=== PATIENT | female | born 1970 | race Caucasian/White ===

== ENCOUNTER → 2019-03-10 12:01 | Outpatient (CLI) | payer OTHER, SELFPAY | PROVIDERS: PCP Physician Assistant Medical; Visit Provider Obstetrics & Gynecology | DX: R30.0 Dysuria (principal) | CPT/HCPCS: 87077; 87086; 87186 ==

== ENCOUNTER 2019-05-01 07:04 | Day surgery (SDC) | payer OTHER, SELFPAY ==
[2019-04-28 09:17] VITALS: BMI 29.7
--- NOTE | 2019-05-01 07:53 | PM.PREOP ---
Pre-operative Note Interval Note History & Physical reviewed/Exam performed by Physician: Yes Changes to H&P: No
[2019-05-01 07:55] VITALS: BMI 28.8
[2019-05-01 08:01] VITALS: BP 130/89; PULSE 58; RESP 15; TEMP 36.6; O2SAT 99
[2019-05-01] MEDS: LACTATED RINGERS 1,000 ML 42 ML IV (08:25)
[2019-05-01 09:55] VITALS: BP 112/76; PULSE 76; RESP 11; TEMP 36.9; O2SAT 98
[2019-05-01 10:00] VITALS: BP 120/81; PULSE 77; RESP 19; O2SAT 99
[2019-05-01 10:05] VITALS: BP 120/85; PULSE 67; RESP 17; O2SAT 100
--- NOTE | 2019-05-01 10:07 | P.OP_ITS ---
Operative Date/Time/Diagnoses Date of procedure: 05/01/19 Time of procedure: 08:45 Pre-op diagnosis: abnormal uterine bleeding, LSIL Post-op diagnosis: same Procedure & Clinicians Procedure: Novasure endometrial ablation, cervical cryotherapy Same procedure as scheduled: Yes Indications: Abnormal uterine bleeding, LSIL on colposcopy Surgeon: Myriam Yoo Marketing Sales Representative: Justina Mejia Anesthesia Type: MAC +/- Operative Notes Specimen(s): none sent Estimated Blood Loss (mL): 0 Procedure in detail: After proper consents were obtained, the patient was taken to the operating room. IV anesthesia was obtained without issue. She was placed in the dorsal lithotomy position and prepped and draped in the normal sterile fashion. After time-out, a speculum was placed in the vagina, and the anterior lip of the cervix grasped with a single-tooth tenaculum. The cervix was easily dilated to 7 mm with Hegar dilators. The uterus was sounded, and fou nd to have an endometrial cavity length of 4.5 cm and cervical length of 3 cm. The NovaSure device was easily introduced into the uterus, and deployed revealing a width of 2.5 cm. The cavity assessment was completed and successful, and the NovaSure process was commenced. The time was 95 seconds, and the total power was 62 w. Once the NovaSure process was complete, the device was retracted and removed from the uterus, with minimal ongoing bleeding or discharge. This point, the tenaculum was removed from the cervix, and attention was turned toward cryotherapy device. Cryotherapy device tip was gently dipped and lubricant, and applied to the cervix, where 3 minutes of freezing begun. Once this 3 minutes was over, the device was removed and the cervix was allowed to thaw. Once the cervix had regained its usual color and appearance, 2nd freeze of 3 minutes was performed. The cervix was again allowed to thaw, and after a final check revealed normal appearance and hemostasis, the speculum was removed from the vagina. The patient tolerated the procedure well. A straight catheterization had been performed prior to the procedure, and negative test had been obtained. Complications: none Post-operative Condition: stable Disposition: PACU Plan for aftercare: Nothing in the vagina for 2 weeks. Postop after 2 weeks. Patient to return with any increasing bleeding, discharge, fevers, chills, nausea, changes in bowel or bladder habits, or any other concerns or complaints.
[2019-05-01 10:09] VITALS: BP 134/83; PULSE 67; RESP 13; O2SAT 100
[2019-05-01] MEDS: OXYCODONE/ACETAMINOPHEN 5/325 TABLET 1 TAB PO (10:12)
--- NOTE | 2019-05-01 10:12 | SUR.PHASEI ---
discussed pain med, pt declined IV rx, felt PO was adequate. Applesauce given first
--- NOTE | 2019-05-01 10:17 | SUR.PHASEI ---
Stable, pleasant, pain 5/10, tolerating PO well. A&O.
[2019-05-01 10:20] VITALS: BP 129/83; PULSE 56; RESP 14; TEMP 36.3; O2SAT 100
== END 2019-05-01 11:03 | disposition home or self-care (01) ==
PROVIDERS: Family Provider Nurse Practitioner; PCP Nurse Practitioner; Visit Provider Obstetrics & Gynecology
PROC: 0U5B8ZZ Destruction of Endometrium, Via Natural or Artificial Opening Endoscopic (ICD-10-PCS; CPT 58563; principal; 2019-05-01 08:45)
DX: N93.9 Abnormal uterine and vaginal bleeding, unspecified (principal); N92.4 Excessive bleeding in the premenopausal period; Z98.890 Other specified postprocedural states; F17.210 Nicotine dependence, cigarettes, uncomplicated; E03.9 Hypothyroidism, unspecified; I10 Essential (primary) hypertension; F32.9 Major depressive disorder, single episode, unspecified
CPT/HCPCS: 58353; 57511; J1100; J1885; J2405; J2704; J3010

== ENCOUNTER 2019-05-19 06:05 | Emergency (ER) | payer OTHER, SELFPAY ==
[2019-05-19 06:14] VITALS: BP 122/71; PULSE 87; RESP 16; TEMP 36.8; O2SAT 99; BMI 28.3
--- NOTE | 2019-05-19 06:41 | ED_ITS ---
HPI - General Adult <David Jorge DO - Last Filed: 05/19/19 20:32> General Chief complaint: Urogenital-Female Stated complaint: fever/chills/cramping had surgery 1222 Time Seen by Provider: 05/19/19 06:14 Source: patient Mode of arrival: Ambulatory Limitations: no limitations History of Present Illness HPI narrative: 48-year-old female who on May 01 underwent an endometrial ablation and cervix cryotherapy. According to the note procedure was unremarkable. Patient states that afterwards the bleeding improved until approximately 5 days ago when she started getting cramping and chills and increased bleeding. She thought that she potentially was starting another menstrual cycle. However she does state that the bleeding has worsened since last . Having to change a pad every 3-4 hours. Also having chills and body aches. Took some ibuprofen prior to arrival. Related Data Home Medications Medication Instructions Recorded Confirmed cholecalciferol (vitamin D3) 5,000 unit PO DAILY 05/01/19 05/01/19 [Vitamin D3] cyanocobalamin (vitamin B-12) 1,000 mcg PO DAILY 05/01/19 05/01/19 [Vitamin B-12] iron 56 mg PO DAILY 05/01/19 05/01/19 Previous Rx's Medication Instructions Recorded ibuprofen 600 mg PO Q8H PRN #20 tab 05/01/19 oxycodone-acetaminophen 1 tab PO NOW PRN #5 tab 05/01/19 oxycodone-acetaminophen [Percocet] 1 tab PO Q4-6H PRN #5 tab 05/01/19 sulfamethoxazole-trimethoprim 1 tab PO BID 5 Days #10 tab 05/19/19 [Bactrim DS] Allergies Allergy/AdvReac Type Severity Reaction Status Date / Time No Known Drug Allergies Allergy Verified 05/01/19 07:54 Review of Systems <David Jorge DO - Last Filed: 05/19/19 20:32> Constitutional Constitutional: Reports body ache(s), Reports chills and Reports fever(s) Cardiovascular Cardiovascular: Denies chest pain and Denies dyspnea Respiratory Respiratory: Denies dyspnea Gastrointestinal Gastrointestinal: Reports abdominal pain, Denies nausea and Denies vomiting Genitourinary Genitourinary: Denies dysuria and Reports vaginal discharge Musculoskeletal Musculoskeletal: Denies myalgias and Denies arthralgias Integumentary/Breasts Skin/Breast: Denies rash Neurologic Neurologic: Denies behavioral changes Psychiatric Psychiatric: Denies behavioral changes Hematologic/Lymphatic Hematologic/Lymphatic: Denies easy bleeding and Denies easy bruising Patient History <David Jorge DO - Last Filed: 05/19/19 20:32> Medical History Alcohol use (Acute) Brachial plexopathy (Acute) Carpal tunnel syndrome (Acute) Current every day smoker (Acute) Depression (Acute) HLD (hyperlipidemia) (Acute) HTN (hypertension) (Acute) Hypothyroidism (Acute) Joint pain (Acute) Pneumonia (Acute) Smoking (Acute) Surgical History (Updated 04/28/19 @ 09:24 by Alisa Chapman RN) History of colposcopy (Acute 04/10/19) Social History household members: spouse Smoking Status: Current every day smoker alcohol intake: current Smoking Status: Current every day smoker Exam <David Jorge DO - Last Filed: 05/19/19 20:32> Initial Vital Signs Initial Vital Signs: Vital Signs Temperature 98.3 F 05/19/19 06:14 Pulse Rate 87 05/19/19 06:14 Respiratory Rate 16 05/19/19 06:14 Blood Pressure 122/71 05/19/19 06:14 Pulse Oximetry 99 05/19/19 06:14 Const General: cooperative, comfortable and well developed Orientation: alert, awake and oriented x3 HENMT Head: normal to inspection and normocephalic Resp Effort & Inspection: normal respiratory effort Auscultation: clear to auscultation bilaterally Cardio Rate: regular rate Rhythm: regular rhythm GI Inspection: non-distended Palpation: soft and No firm External Female Exam: external appearance normal Speculum Exam - Vagina: normal appearance of the vagina Speculum Exam - Cervix: cervical tenderness and other (Eschar on the cervix.) Bimanual Exam- Vagina & Uterus: normal vaginal palpation and cervical tenderness Bimanual Exam- Adnexa, other: normal adnexae Skin Lesions: no lesions Rashes: no rashes Neuro General: alert, awake and oriented x3 Cognition: normal cognition Speech: speech normal Extrem General: normal to inspection and capillary refill normal <Sakshi Oconnor DO - Last Filed: 05/19/19 11:51> Initial Vital Signs Initial Vital Signs: Vital Signs Temperature 98.3 F 05/19/19 06:14 Pulse Rate 87 05/19/19 06:14 Respiratory Rate 16 05/19/19 06:14 Blood Pressure 122/71 05/19/19 06:14 Pulse Oximetry 99 05/19/19 06:14 Course <David Jorge DO - Last Filed: 05/19/19 20:32> Orders Ordered: ED Orders 05/19/19 06:55 Basic Metabolic Panel Stat Complete Blood Count AUTO DIFF Stat 05/19/19 07:12 Urinalysis and Microscopic Stat 05/19/19 07:37 US pelvic complete Stat Vital Signs Vital signs: Vital Signs - 8 hr 05/19/19 06:14 05/19/19 09:15 Temperature 98.3 F Pulse Rate 87 75 Respiratory Rate 16 16 Blood Pressure 122/71 Blood Pressure [Left Arm] 126/71 Pulse Oximetry 99 97 <Sakshi Oconnor DO - Last Filed: 05/19/19 11:51> Orders Ordered: ED Orders 05/19/19 06:55 Basic Metabolic Panel Stat Complete Blood Count AUTO DIFF Stat 05/19/19 07:12 Urinalysis and Microscopic Stat 05/19/19 07:37 US pelvic complete Stat Vital Signs Vital signs: Vital Signs - 8 hr 05/19/19 06:14 05/19/19 09:15 Temperature 98.3 F Pulse Rate 87 75 Respiratory Rate 16 16 Blood Pressure 122/71 Blood Pressure [Left Arm] 126/71 Pulse Oximetry 99 97 Medical Decision Making <DO Bowen Kimble Last Filed: 05/19/19 20:32> Lab Data Result diagrams: 05/19/19 06:55 05/19/19 06:55 Labs: Lab Results 05/19/19 05/19/19 05/19/19 Range/Units 06:55 06:55 07:12 WBC 11.7 H (4.5-11.0) X10^3/uL RBC 3.49 L (4.0-5.2) X10^6/uL Hgb 12.0 (12.0-16.0) g/dL Hct 34.6 L (36-46) % MCV 99.2 (80-100) fL MCH 34.2 H (26-34) PG MCHC 34.5 (30-36) % RDW 12.5 (11.6-14.8) % Plt Count 167 (150-400) X10^3/uL Neut % (Auto) 80.1 H (50-75) % Lymph % (Auto) 9.7 L (25-40) % Trinity % (Auto) 7.5 (3-14) % Eos % (Auto) 2.0 (2-4) % Baso % (Auto) 0.7 (0-2) % Neut # (Auto) 9400 H (4754-3619) /uL Lymph # (Auto) 1100 (3409-5605) /uL Trinity # (Auto) 900 (0-900) /uL Eos # (Auto) 200 (0-450) /uL Baso # (Auto) 100 (0-100) /uL Sodium 138 (137-145) mmol/L Potassium 4.2 (3.4-5.1) mmol/L Chloride 107 (98-107) mmol/L Carbon Dioxide 23 (22-32) mmol/L BUN 7 (7-17) mg/dL Creatinine 0.60 (0.52-1.04) mg/dL Estimated GFR > 60.0 (>60) mL/min BUN/Creatinine Ratio 11.7 (6-22) Glucose 94 (70-100) mg/dL Calcium 9.2 (8.4-10.2) mg/dL Urine Color Yellow Urine Appearance Clear Urine pH 5.5 (4.5-8.0) Ur Specific [place] <=1.005 (1.000-1.035) Urine Protein Negative (Negative) Urine Glucose (UA) Negative (Negative) g/dL Urine Ketones Negative (NEGATIVE) Urine Occult Blood Trace-intact (Negative) Urine Nitrate Negative (Negative) Urine Bilirubin Negative (NEGATIVE) Urine Urobilinogen 0.2 (0.2) E.U./dL Ur Leukocyte Esterase Negative (NEGATIVE) Urine RBC 0-1/hpf (0-5/HPF) Urine WBC None seen (0-5/HPF) Ur Squamous Epith Cells 0-1 /hpf (0-5/HPF) Urine Bacteria Few (2-10) H (None) Ur Culture Indicated? Cult not indicated MDM Narrative Medical decision making narrative: Patient is approximately 18 days after her digital specialist procedure. The past 5 days has had fever and body aches and increasing bleeding. Afebrile here in the emergency department. Pelvic exam does have eschar on the cervix. Does have dark red blood in the vaginal vault. Does have some tenderness with movement of the cervix however I feel that it would be consistent with the procedure that she just underwent. Mild uterine tenderness. No adnexal tenderness. There is some concern about an infection given the increasing bleeding in the discomfort she is having and also the body aches in the foul-smelling discharge. Labs ordered. Care turned over to day provider to follow-up on labs and to discuss the case with operative provider. <Sakshi Oconnor, - Last Filed: 05/19/19 11:51> Lab Data Labs: Lab Results 05/19/19 05/19/19 05/19/19 Range/Units 06:55 06:55 07:12 WBC 11.7 H (4.5-11.0) X10^3/uL RBC 3.49 L (4.0-5.2) X10^6/uL Hgb 12.0 (12.0-16.0) g/dL Hct 34.6 L (36-46) % MCV 99.2 (80-100) fL MCH 34.2 H (26-34) PG MCHC 34.5 (30-36) % RDW 12.5 (11.6-14.8) % Plt Count 167 (150-400) X10^3/uL Neut % (Auto) 80.1 H (50-75) % Lymph % (Auto) 9.7 L (25-40) % Trinity % (Auto) 7.5 (3-14) % Eos % (Auto) 2.0 (2-4) % Baso % (Auto) 0.7 (0-2) % Neut # (Auto) 9400 H (6439-0903) /uL Lymph # (Auto) 1100 (1076-5252) /uL Trinity # (Auto) 900 (0-900) /uL Eos # (Auto) 200 (0-450) /uL Baso # (Auto) 100 (0-100) /uL Sodium 138 (137-145) mmol/L Potassium 4.2 (3.4-5.1) mmol/L Chloride 107 (98-107) mmol/L Carbon Dioxide 23 (22-32) mmol/L BUN 7 (7-17) mg/dL Creatinine 0.60 (0.52-1.04) mg/dL Estimated GFR > 60.0 (>60) mL/min BUN/Creatinine Ratio 11.7 (6-22) Glucose 94 (70-100) mg/dL Calcium 9.2 (8.4-10.2) mg/dL Urine Color Yellow Urine Appearance Clear Urine pH 5.5 (4.5-8.0) Ur Specific [place] <=1.005 (1.000-1.035) Urine Protein Negative (Negative) Urine Glucose (UA) Negative (Negative) g/dL Urine Ketones Negative (NEGATIVE) Urine Occult Blood Trace-intact (Negative) Urine Nitrate Negative (Negative) Urine Bilirubin Negative (NEGATIVE) Urine Urobilinogen 0.2 (0.2) E.U./dL Ur Leukocyte Esterase Negative (NEGATIVE) Urine RBC 0-1/hpf (0-5/HPF) Urine WBC None seen (0-5/HPF) Ur Squamous Epith Cells 0-1 /hpf (0-5/HPF) Urine Bacteria Few (2-10) H (None) Ur Culture Indicated? Cult not indicated Imaging Data pelvic ultrasound: Radiologist's impression: PROCEDURE: US PELVIC COMPLETE INDICATIONS: PAIN, FEVER POST ENDOMETRIAL ABLATION TECHNIQUE: Real-time scanning was performed of the pelvic organs, with image documentation. Additional endovaginal scanning was necessary due to incomplete visualization of the adnexal and endometrial structures by transabdominal scanning. COMPARISON: None. FINDINGS: Transabdominal scanning: Limited scanning through the kidneys shows no hydronephrosis. No pathologic free abdominal or pelvic fluid. 1.2 x 1.1 x 1 cm is submucosal fibroid is seen Endovaginal scanning: Uterus: Uterus is normal in size at 8.3 x 4.1 x 6.6 cm. linear hyperechogenicity is seen lining the endometrium with no internal vascularity or endometrial thickening. No endometrial fluid. Ovaries: Right ovary measures 2.9 x 1.1 x 2.1 cm in size. Left ovary measures 2.8 x 1.2 x 1.7 cm in size. Bilateral are within normal limits. No adnexal mass. IMPRESSION: 1. Limited evaluation of endometrium due to presence of linear hyperechogenic signal within the endometrium, most likely related to recent endometrial ablation. No endometrial fluid. 2. Suggestion of submucosal fibroid versus blood clot measuring 1.2 x 1.1 x 1 cm in size. 3. Normal appearing bilateral ovaries. No adnexal mass or fluid collection. Dictated by: Vince Deleon M.D. on 05/19/2019 at 8:21 MDM Narrative Medical decision making narrative: Patient signed out to me by Dr. Jorge, seen evaluated patient myself. Ultrasound does not show any fluid collection she does have some bacteria in her urine I've discussed ultrasound results with Dr. henriquez. At this time unlikely to have endometritis 18 days postoperatively. Will cover with Bactrim at this time and follow up outpatient Discharge Plan Departure Patient Disposition: Home Clinical Impression: UTI (urinary tract infection) Qualifiers: Urinary tract infection type: acute cystitis Hematuria presence: without hematuria Qualified Code(s): N30.00 - Acute cystitis without hematuria Discharge Date/Time: 05/19/19 09:16 Instructions: DI for Urinary Tract Infection (UTI) Activity Restrictions/Additional Instructions: *You have been diagnosed with UTI *What to do: At this time blood work and ultrasound are reassuring. I've discussed case with Dr. henriquez. Follow-up in clinic *Continue to take medications as directed Bactrim 1 tablet twice a day for 5 days--> SENT TO [facility] IN [place] *Follow up with your primary care provider in 2-3 days *Return to ER if you should have increased pain fever continuing nausea, persistent vomiting or any new, worsening or concerning symptoms Prescriptions: New sulfamethoxazole-trimethoprim [Bactrim DS] 800-160 mg tablet 1 tab PO BID 5 Days Qty: 10 RF: 0 No Action cyanocobalamin (vitamin B-12) [Vitamin B-12] 1,000 mcg Tablet 1,000 mcg PO DAILY RF: 0 iron 18 mg Tablet 56 mg PO DAILY RF: 0 cholecalciferol (vitamin D3) [Vitamin D3] 5,000 unit Tablet 5,000 unit PO DAILY RF: 0 oxycodone-acetaminophen 5-325 mg Tablet 1 tab PO NOW PRN (Reason: Mild or Moderate Pain) Qty: 5 RF: 0 ibuprofen 600 mg tablet 600 mg PO Q8H PRN (Reason: endometrial ablation) Qty: 20 RF: 0 oxycodone-acetaminophen [Percocet] 5-325 mg tablet 1 tab PO Q4-6H PRN (Reason: pain) Qty: 5 RF: 0 Referrals: Rissa Salinas ARNP [Primary Care Provider] - [place],MD Myriam [Physician] -
[2019-05-19 07:13] LABS: Add Manual Diff / Slide Review NO; Basophils Absolute Auto 100 /uL (0-100); Basophils Percent Auto 0.7 % (0-2); Eosinophils Absolute Auto 200 /uL (0-450); Hematocrit 34.6 % (36-46); Lymphocytes Absolute Auto 1100 /uL (1100-4500); Lymphocytes Percent Auto 9.7 % (25-40); Mean Corpuscular HGB Conc 34.5 % (30-36); Mean Corpuscular Hemoglobin 34.2 PG (26-34); Mean Corpuscular Volume 99.2 fL (80-100); Monocytes Absolute Auto 900 /uL (0-900); Monocytes Percent Auto 7.5 % (3-14); Neutrophils Absolute Auto 9400 /uL (1500-7000); Neutrophils Percent Auto 80.1 % (50-75); Platelet Count 167 X10^3/uL (150-400); Red Blood Cell Count 3.49 X10^6/uL (4.0-5.2); Red Cell Distribution Width 12.5 % (11.6-14.8); White Blood Cell Count 11.7 X10^3/uL (4.5-11.0)
[2019-05-19 07:14] LABS: WBC Urine None Seen (0-5/HPF)
[2019-05-19 07:15] LABS: Appearance Urine UA CLEAR; Bilirubin Urine UA NEGATIVE (NEGATIVE); Color Urine UA YELLOW; Glucose Urine UA NEGATIVE (Negative); Ketones Urine UA NEGATIVE (NEGATIVE); Leukocyte Esterase Urine UA NEGATIVE (NEGATIVE); Nitrite Urine UA NEGATIVE (Negative); Occult Blood Urine UA TRACE-INTACT (Negative); Protein Urine UA NEGATIVE (Negative); Specific Gravity Urine UA <=1.005 (1.000-1.035); Urobilinogen Urine UA 0.2 E.U./dL (0.2)
[2019-05-19 07:18] LABS: BUN Creatinine Ratio 11.7 (6-22); Blood Urea Nitrogen 7 mg/dL (7-17); Calcium 9.2 mg/dL (8.4-10.2); Carbon Dioxide 23 mmol/L (22-32); Chloride 107 mmol/L (98-107); Estimated Glomerular Filt Rate > 60.0 mL/min (>60); Glucose 94 mg/dL (70-100); HEMOLYSIS < 15 (0-50); Potassium 4.2 mmol/L (3.4-5.1); Sodium 138 mmol/L (137-145)
[2019-05-19 07:23] LABS: RBC Urine 0-1/HPF (0-5/HPF); Squamous Epithelial Cell Urine 0-1 /HPF (0-5/HPF); pH Urine UA 5.5 (4.5-8.0)
[2019-05-19 07:24] LABS: Bacteria Urine Few (2-10); Culture Indicated Urine Cult Not Indicated
--- NOTE | 2019-05-19 07:37 | DI.US.S_ITS ---
PROCEDURE: US PELVIC COMPLETE INDICATIONS: PAIN, FEVER POST ENDOMETRIAL ABLATION TECHNIQUE: Real-time scanning was performed of the pelvic organs, with image documentation. Additional endovaginal scanning was necessary due to incomplete visualization of the adnexal and endometrial structures by transabdominal scanning. COMPARISON: None. FINDINGS: Transabdominal scanning: Limited scanning through the kidneys shows no hydronephrosis. No pathologic free abdominal or pelvic fluid. 1.2 x 1.1 x 1 cm is submucosal fibroid is seen Endovaginal scanning: Uterus: Uterus is normal in size at 8.3 x 4.1 x 6.6 cm. linear hyperechogenicity is seen lining the endometrium with no internal vascularity or endometrial thickening. No endometrial fluid. Ovaries: Right ovary measures 2.9 x 1.1 x 2.1 cm in size. Left ovary measures 2.8 x 1.2 x 1.7 cm in size. Bilateral are within normal limits. No adnexal mass. IMPRESSION: 1. Limited evaluation of endometrium due to presence of linear hyperechogenic signal within the endometrium, most likely related to recent endometrial ablation. No endometrial fluid. 2. Suggestion of submucosal fibroid versus blood clot measuring 1.2 x 1.1 x 1 cm in size. 3. Normal appearing bilateral ovaries. No adnexal mass or fluid collection. Dictated by: Vince Deleon M.D. on 05/19/2019 at 8:21 Approved by: Vince Deleon M.D. on 05/19/2019 at 8:24
[2019-05-19 09:15] VITALS: BP 126/71; PULSE 75; RESP 16; O2SAT 97
== END 2019-05-19 09:16 | disposition home or self-care (01) ==
PROVIDERS: Emergency Medicine; Emergency Provider Emergency Medicine; Family Provider Nurse Practitioner; PCP Nurse Practitioner
DX: N30.00 Acute cystitis without hematuria (principal); N93.9 Abnormal uterine and vaginal bleeding, unspecified; R50.9 Fever, unspecified
CPT/HCPCS: 36415; 76830; 76856; 80048; 81001; 85025; 99284